=== PATIENT | female | born 2000 | race Caucasian/White ===

== ENCOUNTER 2019-09-20 05:55 | Inpatient (IN) | payer MEDICAID ==
[2019-09-20] MEDS ORDERED: CARBOPROST TROMETHAMINE 250 MCG/ML 1 ML AMP IM PRN (06:14)
[2019-09-20] MEDS ORDERED: TERBUTALINE 1 MG/ML VIAL SQ PRN (06:14)
[2019-09-20] MEDS ORDERED: OXYTOCIN 10 UNIT/ML 1 ML VIAL IM PRN (06:14)
[2019-09-20] MEDS ORDERED: AMPICILLIN 2,000 MG in SODIUM CHLORIDE 0.9% 100 ML IVPB STA (06:14)
[2019-09-20] MEDS ORDERED: METHYLERGONOVINE 0.2 MG/ML 1 ML AMP IM PRN (06:14)
[2019-09-20] MEDS ORDERED: LIDOCAINE 0.5% (PF) 5 MG/ML (50 ML SDV) SQ PRN (06:14)
[2019-09-20] MEDS ORDERED: LACTATED RINGERS 1,000 ML IV SCH (06:15)
[2019-09-20] MEDS ORDERED: OXYTOCIN 30 UNITS/500 ML NS 30 UNIT in SALINE 1 500ML.BAG IV SCH (06:15)
[2019-09-20 06:24] LABS: Basophils % (A) 0 %; Eosinophils # (A) 0.1 k/uL (0-0.7); Eosinophils % (A) 1 %; HCT 38.8 % (34.0-46.0); HGB 13.3 gm/dL (11.4-16.0); Lymphocytes # (A) 2.5 k/uL (1.0-4.8); Lymphocytes % (A) 20 %; MCH 29.1 pg (25.0-35.0); MCHC 34.2 g/dL (31.0-37.0); MCV 85.2 fL (80.0-100.0); Monocytes # (A) 0.6 k/uL (0-1.0); Monocytes % (A) 4 %; Neutrophils # (A) 9.1 k/uL (1.3-7.7); Neutrophils % (A) 73 %; Platelet Count 239 k/uL (150-450); RBC 4.55 m/uL (3.80-5.40); RDW 13.2 % (11.5-15.5); WBC 12.4 k/uL (4.0-11.0)
[2019-09-20] MEDS ORDERED: BUTORPHANOL 1 MG/ML 1 ML VIAL IV PRN (08:33)
--- NOTE | 2019-09-20 08:38 | P.HPOB ---
History of Present Illness H&P Date: 09/20/19 Chief Complaint: IUP at 39 and 1/sevenths weeks This is a 18-year-old 1 para 0 at 39 and one sevenths weeks with an estimated due date of 09/25. Patient has been receiving routine care with myself which has been essentially on The kidney. Patient has a prior history of a positive RPR titers have been consistent. She [facility]. Patient this a.m. notes good movement she denies contractions, loss of fluid or vaginal bleeding. On bloodwork patient has a blood type of A+, rubella status immune, RPR as stated above was positive titers being consistent. Hepatitis B surface antigen was negative HIV negative, group beta strep positive on 09/05. Review of Systems Constitutional: Denies chills, Denies fatigue, Denies fever Ears, nose, mouth and throat: Denies headache Cardiovascular: Reports leg edema Gastrointestinal: Denies diarrhea, Denies nausea, Denies vomiting Genitourinary: Reports Past Medical History Past Medical History: No Reported History History of Any Multi-Drug Resistant Organisms: None Reported Past Surgical History: No Surgical Hx Reported Past Anesthesia/Blood Transfusion Reactions: No Reported Reaction Smoking Status: Never smoker - Past Family History Father Family Medical History: Coronary Artery Disease (CAD) Medications and Allergies Home Medications Medication Instructions Recorded Confirmed Type Pnv No.95/Ferrous Fum/Folic AC 1 each PO DAILY 09/20/19 09/20/19 History [ Multivitamin Tablet] Allergies Allergy/AdvReac Type Severity Reaction Status Date / Time red dye AdvReac Vomiting Verified 09/20/19 06:13 Exam Osteopathic Statement: *. No significant issues noted on an osteopathic structural exam other than those noted in the History and Physical/Consult. 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 On cervical exam she is 3/80/-2 anatomy is performed and clear fluid was obtained. Results Result Diagrams: 09/20/19 06:15 Abnormal Lab Results - Last 24 Hours (Table) 09/20/19 Range/Units 06:15 WBC 12.4 H (4.0-11.0) k/uL Neutrophils # 9.1 H (1.3-7.7) k/uL Assessment and Plan (1) Term Current Visit: Yes Status: Acute Code(s): Z34.90 - ENCNTR FOR SUPRVSN OF NORMAL , UNSP, UNSP TRIMESTER SNOMED Code(s): 72156048 (2) Positive GBS test Current Visit: Yes Status: Acute Code(s): B95.1 - STREPTOCOCCUS, GROUP B, CAUSING DISEASES CLASSD ELSWHR SNOMED Code(s): 946349884 Plan: 18-year-old 1 para 0 at 39 and one sevenths weeks admitted to labor and delivery for elective induction of labor, Pitocin is started per hospital protocol. Options for analgesia are discussed with patient including Stadol or epidural. Patient will consider. Anesthesia will be notified if she desires epidural placement. Anticipate spontaneous vaginal delivery
[2019-09-20] MEDS ORDERED: PRENATAL VIT-IRON-FOLIC ACID 1 EACH CAP PO SCH (09:00)
[2019-09-20] MEDS ORDERED: AMPICILLIN 1,000 MG in SODIUM CHLORIDE 0.9% 50 ML IVPB SCH (10:15)
[2019-09-20] MEDS ORDERED: ROPIVACAINE 100 MG, fentaNYL (PF) 200 MCG in SODIUM CHLORIDE 0.9% 76 ML EPIDURAL ONE (10:53)
[2019-09-20] MEDS ORDERED: diphenhydrAMINE 50 MG CAP PO PRN (14:48)
[2019-09-20] MEDS ORDERED: HYDROCORTISONE 2.5% RECTAL CREAM 30 GM TUBE RECTAL PRN (14:48)
[2019-09-20] MEDS ORDERED: HYDROcodone/APAP 5-325MG 1 EACH TAB PO PRN (14:48)
[2019-09-20] MEDS ORDERED: SIMETHICONE 80 MG CHEWABLE PO PRN (14:48)
[2019-09-20] MEDS ORDERED: IBUPROFEN 600 MG TAB PO PRN (14:48)
[2019-09-20] MEDS ORDERED: diphenhydrAMINE 50 MG/ML 1 ML VIAL IVP PRN ×2 (14:48)
[2019-09-20] MEDS ORDERED: LANOLIN CREAM 5 GM TUBE TOPICAL PRN (14:48)
[2019-09-20] MEDS ORDERED: ACETAMINOPHEN TAB 325 MG TAB PO PRN (14:48)
[2019-09-20] MEDS ORDERED: BENZOCAINE/MENTHOL SPRAY 1 GM/SPRAY AEROSOL TOPICAL PRN (14:48)
[2019-09-20] MEDS ORDERED: ZOLPIDEM 5 MG TAB PO PRN (14:48)
[2019-09-20] MEDS ORDERED: diphenhydrAMINE 25 MG CAP PO PRN (14:48)
[2019-09-20] MEDS ORDERED: WITCH HAZEL 1 EACH MED..PAD TOPICAL PRN (14:48)
--- NOTE | 2019-09-20 14:53 | P.PROBDLV ---
Vaginal Delivery Note - . Vaginal Delivery Note: This is a pleasant 18-year-old 1 para 0 at 39 and one sevenths weeks with an estimated due date of 09/25. Patient presented to labor and delivery this morning for elective induction of labor. Patient was noted to be 3 cm dilated on initial exam. Patient was started on Pitocin induction of labor per hospital protocol. Patient underwent amniotomy clear fluid was obtained. Patient became uncomfortable and requested epidural placement, patient was noted to be 4 cm at that time. Anesthesia was notified and epidural was placed without difficulty. Patient progressed to complete began pushing and had a normal spontaneous vaginal delivery of a viable male infant at 1416. Prior to delivery of a midline episiotomy was preformed secondary to anterior tearing. After a two-minute delayed the umbilical cord was doubly clamped and cut and the infant was handed to the maternal abdomen. The placenta was then delivered spontaneously intact with a three-vessel cord being noted. Inspection the patient's vaginal vault the midline episiotomy was noted along with hymenal tears. The episiotomy was repaired in the usual fashion with 3-0 Rapide. The hymenal tears were repaired with a [id number]-[id number] suture of 3-0 Rapide without difficulty. Hemostasis was appreciated. Estimated blood loss 500 mL Rectal exam was performed at the end of the repair and rectal mucosa was normal in nature, no defects were appreciated. All counts were noted be correct 2 Patient and infant tolerated delivery well
[2019-09-20] MEDS ORDERED: OXYTOCIN 20 UNITS/1000 ML NS 1,000 ML IV SCH (15:00)
[2019-09-20] MEDS: SENNOSIDES-DOCUSATE SODIUM 1 EACH TAB PO SCH (20:07)
[2019-09-21 02:05] VITALS: RESP 18
[2019-09-21 06:13] LABS: Basophils % (A) 0 %; Eosinophils # (A) 0.1 k/uL (0-0.7); Eosinophils % (A) 0 %; HCT 26.1 % (34.0-46.0); Lymphocytes # (A) 2.3 k/uL (1.0-4.8); Lymphocytes % (A) 16 %; MCH 29.2 pg (25.0-35.0); MCHC 33.9 g/dL (31.0-37.0); MCV 86.3 fL (80.0-100.0); Mean Platelet Volume 7.9; Monocytes # (A) 0.8 k/uL (0-1.0); Monocytes % (A) 5 %; Neutrophils # (A) 11.3 k/uL (1.3-7.7); Neutrophils % (A) 77 %; Platelet Count 180 k/uL (150-450); RBC 3.02 m/uL (3.80-5.40); RDW 13.3 % (11.5-15.5); WBC 14.6 k/uL (4.0-11.0)
[2019-09-21 06:15] LABS: HGB 8.8 gm/dL (11.4-16.0)
[2019-09-21] MEDS: SENNOSIDES-DOCUSATE SODIUM 1 EACH TAB PO SCH (07:52)
[2019-09-21 08:39] VITALS: BP 100/66; PULSE 99; TEMP 98.4
--- NOTE | 2019-09-21 10:29 | P.DS ---
Providers Date of admission: 09/20/19 05:55 Expected date of discharge: 09/21/19 Attending physician: Hilda Jose Primary care physician: Stated None - Discharge Diagnosis(es) (1) Term Current Visit: Yes Status: Acute (2) Positive GBS test Current Visit: Yes Status: Acute (3) Positive RPR test Current Visit: Yes Status: Acute (4) Acute blood loss anemia Current Visit: Yes Status: Acute (5) hemorrhage Controlled with 1 dose of Methergine after delivery, patient had a 8 lbs. 13 oz. quickly, this precipitated the hemorrhage. It was recognized early treated with Methergine and controlled. Current Visit: Yes Status: Acute Hospital Course: This is a pleasant 18-year-old 1 para 0 at 39 and one sevenths weeks that presented to labor and delivery for elective induction of labor. Patient had been receiving routine care with myself which has been essentially uncomplicated, patient has a known history of a positive RPR, and was treated at the health department with penicillin 3. Patient is currently negative on serology. Patient was admitted to labor and delivery and found to be 3 cm. Once regular contractions were noted from Pitocin induction of labor per hospital protocol amniotomy was performed. Clear amniotic fluid was noted on amniotomy. Patient soon became uncomfortable and requested epidural placement. Epidural was placed without difficulty by the anesthesia department. Patient progressed quickly to complete began pushing and had a normal spontaneous vaginal delivery of a viable male at 1416, prior to delivery a midline episiotomy was preformed secondary to anterior tearing. Infant's weight 8 lbs. 13 oz. Episiotomy was repaired in the usual fashion with 3-0 Rapide. Patient did sustain bilateral hymenal tears in addition which was repaired with [id number] sutures of 3-0 Rapide. Patient did sustain a hemorrhage with delivery of her 8-13 pound . Patient was given Methergine after delivery. Hemoglobin today noted to be low at 8.8, consistent with acute blood loss anemia. Patient's course has been uneventful. Patient is ambulating and voiding without difficulty on this day #1. She states her pain is well-controlled, she is tolerating a regular diet without nausea or vomiting. She does wish discharge home at 24 hours. Infant was evaluated by pediatrics and plan is to treat infant with penicillin, his serology was negative. Patient Condition at Discharge: Good Plan - Discharge Summary New Discharge Prescriptions: No Action Pnv No.95/Ferrous Fum/Folic AC [ Multivitamin Tablet] 1 each PO DAILY Discharge Medication List Pnv No.95/Ferrous Fum/Folic AC [ Multivitamin Tablet] 1 each PO DAILY 09/20/19 [History] Follow up Appointment(s)/Referral(s): Hilda Jose DO [Doctor of Osteopathic Medicine] - 4 Weeks Patient Instructions/Handouts: Vaginal Delivery (DC), Vaginal Delivery (GEN) Discharge Disposition: HOME SELF-CARE
[2019-09-21] MEDS ORDERED: FERROUS SULFATE 325 MG TAB PO SCH (11:15)
== END 2019-09-21 16:00 | disposition home or self-care (01) | DRG 806 ==
LOC: 4FBP 05:55
PROVIDERS: ADMIT Obstetrics & Gynecology Obstetrics; ATTEND Obstetrics & Gynecology Obstetrics
PROC: 3E033VJ Introduction of Other Hormone into Peripheral Vein, Percutaneous Approach (ICD-10-PCS; principal; 2019-09-20)
PROC: 10E0XZZ Delivery of Products of Conception, External Approach (ICD-10-PCS; principal; 2019-09-20)
PROC: 3E0R3BZ Introduction of Anesthetic Agent into Spinal Canal, Percutaneous Approach (ICD-10-PCS; principal; 2019-09-20)
PROC: 10907ZC Drainage of Amniotic Fluid, Therapeutic from Products of Conception, Via Natural or Artificial Opening (ICD-10-PCS; principal; 2019-09-20)
PROC: 00HU33Z Insertion of Infusion Device into Spinal Canal, Percutaneous Approach (ICD-10-PCS; principal; 2019-09-20)
PROC: 0HQ9XZZ Repair Perineum Skin, External Approach (ICD-10-PCS; principal; 2019-09-20)
PROC: 0W8NXZZ Division of Female Perineum, External Approach (ICD-10-PCS; principal; 2019-09-20)
DX: O99.824 Streptococcus B carrier state complicating childbirth (principal); D62 Acute posthemorrhagic anemia; Z37.0 Single live birth; O72.1 Other immediate postpartum hemorrhage; O75.89 Other specified complications of labor and delivery; O70.0 First degree perineal laceration during delivery; O99.02 Anemia complicating childbirth; R78.89 Finding of other specified substances, not normally found in blood; Z3A.39 39 weeks gestation of pregnancy; Z91.048 Other nonmedicinal substance allergy status; Z82.49 Family history of ischemic heart disease and other diseases of the circulatory system
CPT/HCPCS: 85025; 86780; 86850; 86870; 86880; 86900; 86901; 88307

== ENCOUNTER 2020-06-25 11:54 | Emergency (ER) | payer MEDICAID, OTHER ==
[2020-06-25 12:32] LABS: Appearance,Urine Clear (Clear); Bilirubin,Urine Negative (Negative); Blood,Urine Small (Negative); Color,Urine Yellow; Glucose,Urine (UA) Negative (Negative); Ketones,Urine Negative (Negative); Leukocyte Esterase,Urine Negative (Negative); Mucus,Urine Rare /hpf; Nitrite,Urine Negative (Negative); Protein,Urine Negative (Negative); RBC,Urine 3 /hpf (0-5); Specific Gravity,Urine 1.015 (1.001-1.035); Squamous Epithelial Cell,Urine <1 /hpf (0-4); Urobilinogen,Urine <2.0 mg/dL (<2.0); WBC,Urine 1 /hpf (0-5)
[2020-06-25] MEDS ORDERED: SODIUM CHLORIDE 0.9% 1,000 ML IV STA (12:48)
--- NOTE | 2020-06-25 12:55 | ED ---
Abdominal Pain HPI - General Chief Complaint: Abdominal Pain Stated Complaint: back & abd pain Time Seen by Provider: 06/25/20 12:39 Source: patient, family, RN notes reviewed Mode of arrival: ambulatory Limitations: no limitations - History of Present Illness Initial Comments: 19-year-old white female patient presents to the emergency room with diffuse abdominal pain, states mostly epigastric in nature, sometimes radiates to her back for one week. Tried Tums at home with no relief. Patient denies any dysuria, vaginal bleeding, fevers, nausea vomiting or diarrhea. Patient states is a possibility of being . Last menstrual period was 06/03. Patient denies any medical or surgical history her daily medications. MD Complaint: abdominal pain -: week(s) (1) Location: diffuse (States on the left side into her back for one week but mostly diffuse worse after eating), LUQ Radiation: back Severity scale (1-10): 8 Quality: cramping Consistency: intermittent Improves With: nothing Worsens With: eating Associated Symptoms: diarrhea Treatments Prior to Arrival: antacids (tums) - Related Data LMP Date: 06/03/20 Patient : Yes (positive here today) Previous Rx's Medication Instructions Recorded Famotidine [Pepcid] 20 mg PO BID #28 tablet 06/25/20 Lgl-Qgpn-Qdbhe Acid 1 cap PO DAILY 60 Days #60 cap 06/25/20 [-U Capsule (formulary)] Allergies Allergy/AdvReac Type Severity Reaction Status Date / Time red dye AdvReac Vomiting Verified 06/25/20 14:18 Review of Systems ROS Statement: Those systems with pertinent positive or pertinent negative responses have been documented in the HPI. ROS Other: All systems not noted in ROS Statement are negative. Past Medical History Past Medical History: No Reported History History of Any Multi-Drug Resistant Organisms: None Reported Past Surgical History: No Surgical Hx Reported Past Anesthesia/Blood Transfusion Reactions: No Reported Reaction Past Psychological History: No Psychological Hx Reported Smoking Status: Former smoker Past Alcohol Use History: None Reported Past Drug Use History: None Reported - Past Family History Father Family Medical History: Coronary Artery Disease (CAD) General Exam Limitations: no limitations General appearance: alert, in no apparent distress Head exam: Present: atraumatic, normocephalic, normal inspection Eye exam: Present: normal appearance, PERRL, EOMI. Absent: scleral icterus, conjunctival injection, periorbital swelling ENT exam: Present: normal exam, mucous membranes moist Neck exam: Present: normal inspection, full ROM. Absent: tenderness, meningismus, lymphadenopathy Respiratory exam: Present: normal lung sounds bilaterally. Absent: respiratory distress, wheezes, rales, rhonchi, stridor, decreased breath sounds Cardiovascular Exam: Present: regular rate, normal rhythm, normal heart sounds. Absent: systolic murmur, diastolic murmur, rubs, gallop, clicks, JVD GI/Abdominal exam: Present: soft, normal bowel sounds. Absent: distended, tenderness, guarding, rebound, rigid Back exam: Present: normal inspection, full ROM. Absent: CVA tenderness (R), CVA tenderness (L) Neurological exam: Present: alert, oriented X3, CN II-XII intact Psychiatric exam: Present: normal affect, normal mood Skin exam: Present: warm, dry, intact, normal color. Absent: rash Course Vital Signs 06/25/20 06/25/20 12:13 15:18 Temperature 98.6 F 98.7 F Pulse Rate 87 80 Respiratory 20 18 Rate Blood Pressure 150/97 127/82 O2 Sat by Pulse 99 100 Oximetry Medical Decision Making - Medical Decision Making Case discussed with Dr. Hogan, ultrasound shows no gestational sac seen, early 4 weeks by date, no free fluid. Labs are within normal limits, no white count and no elevation in LFTs. Serum hCG 797, patient did get relief with Pepcid. We'll send patient home with prescription of Pepcid 20 mg daily a nd follow up with [facility] - Lab Data Result diagrams: 06/25/20 13:02 06/25/20 13:02 Lab Results 06/25/20 06/25/20 06/25/20 Range/Units 12:23 12:24 13:02 WBC 8.0 (4.0-11.0) k/uL RBC 4.65 (3.80-5.40) m/uL Hgb 13.1 (11.4-16.0) gm/dL Hct 37.7 (34.0-46.0) % MCV 81.1 (80.0-100.0) fL MCH 28.2 (25.0-35.0) pg MCHC 34.8 (31.0-37.0) g/dL RDW 13.8 (11.5-15.5) % Plt Count 238 (150-450) k/uL MPV 7.1 Neutrophils % 77 % Lymphocytes % 17 % Monocytes % 5 % Eosinophils % 1 % Basophils % 0 % Neutrophils # 6.1 (1.3-7.7) k/uL Lymphocytes # 1.3 (1.0-4.8) k/uL Monocytes # 0.4 (0-1.0) k/uL Eosinophils # 0.1 (0-0.7) k/uL Basophils # 0.0 (0-0.2) k/uL Sodium (137-145) mmol/L Potassium (3.5-5.1) mmol/L Chloride (98-107) mmol/L Carbon Dioxide (22-30) mmol/L Anion Gap mmol/L BUN (7-17) mg/dL Creatinine (0.52-1.04) mg/dL Est GFR (CKD-EPI)AfAm (>60 ml/min/1.73 sqM) Est GFR (CKD-EPI)NonAf (>60 ml/min/1.73 sqM) Glucose (74-99) mg/dL Calcium (8.4-10.2) mg/dL Total Bilirubin (0.2-1.3) mg/dL AST (14-36) U/L ALT (4-34) U/L Alkaline Phosphatase (38-126) U/L Total Protein (6.3-8.2) g/dL Albumin (3.5-5.0) g/dL Amylase (30-110) U/L Lipase (23-300) U/L HCG, Quant mIU/mL Urine Color Yellow Urine Appearance Clear (Clear) Urine pH 7.0 (5.0-8.0) Ur Specific [place] 1.015 (1.001-1.035) Urine Protein Negative (Negative) Urine Glucose (UA) Negative (Negative) Urine Ketones Negative (Negative) Urine Blood Small H (Negative) Urine Nitrite Negative (Negative) Urine Bilirubin Negative (Negative) Urine Urobilinogen <2.0 (<2.0) mg/dL Ur Leukocyte Esterase Negative (Negative) Urine RBC 3 (0-5) /hpf Urine WBC 1 (0-5) /hpf Ur Squamous Epith Cells <1 (0-4) /hpf Urine Mucus Rare H (None) /hpf Urine HCG, Qual Detected (Not Detectd) 06/25/20 06/25/20 Range/Units 13:02 13:02 WBC (4.0-11.0) k/uL RBC (3.80-5.40) m/uL Hgb (11.4-16.0) gm/dL Hct (34.0-46.0) % MCV (80.0-100.0) fL MCH (25.0-35.0) pg MCHC (31.0-37.0) g/dL RDW (11.5-15.5) % Plt Count (150-450) k/uL MPV Neutrophils % % Lymphocytes % % Monocytes % % Eosinophils % % Basophils % % Neutrophils # (1.3-7.7) k/uL Lymphocytes # (1.0-4.8) k/uL Monocytes # (0-1.0) k/uL Eosinophils # (0-0.7) k/uL Basophils # (0-0.2) k/uL Sodium 137 (137-145) mmol/L Potassium 3.7 (3.5-5.1) mmol/L Chloride 105 (98-107) mmol/L Carbon Dioxide 24 (22-30) mmol/L Anion Gap 8 mmol/L BUN 9 (7-17) mg/dL Creatinine 0.59 (0.52-1.04) mg/dL Est GFR (CKD-EPI)AfAm >90 (>60 ml/min/1.73 sqM) Est GFR (CKD-EPI)NonAf >90 (>60 ml/min/1.73 sqM) Glucose 104 H (74-99) mg/dL Calcium 9.1 (8.4-10.2) mg/dL Total Bilirubin 0.6 (0.2-1.3) mg/dL AST 19 (14-36) U/L ALT 16 (4-34) U/L Alkaline Phosphatase 85 (38-126) U/L Total Protein 7.0 (6.3-8.2) g/dL Albumin 4.0 (3.5-5.0) g/dL Amylase 48 (30-110) U/L Lipase 124 (23-300) U/L HCG, Quant 797.2 mIU/mL Urine Color Urine Appearance (Clear) Urine pH (5.0-8.0) Ur Specific [place] (1.001-1.035) Urine Protein (Negative) Urine Glucose (UA) (Negative) Urine Ketones (Negative) Urine Blood (Negative) Urine Nitrite (Negative) Urine Bilirubin (Negative) Urine Urobilinogen (<2.0) mg/dL Ur Leukocyte Esterase (Negative) Urine RBC (0-5) /hpf Urine WBC (0-5) /hpf Ur Squamous Epith Cells (0-4) /hpf Urine Mucus (None) /hpf Urine HCG, Qual (Not Detectd) Disposition Clinical Impression: Epigastric abdominal pain, Disposition: HOME SELF-CARE Condition: Good Instructions (If sedation given, give patient instructions): Abdominal Pain in (ED) Additional Instructions: Follow up with [facility] this week. Take vitamins daily, take Pepcid as prescribed for epigastric pain. Return if vaginal bleeding or increased abdominal pain. Prescriptions: Famotidine [Pepcid] 20 mg PO BID #28 tablet Bfk-Zlvt-Owjye Acid [-U Capsule (formulary)] 1 cap PO DAILY 60 Days #60 cap Is patient prescribed a controlled substance at d/c from ED?: No Referrals: Jacky Galvez DO [Primary Care Provider] - 1-2 days Time of Disposition: 15:55
[2020-06-25 13:19] LABS: Basophils % (A) 0 %; Eosinophils # (A) 0.1 k/uL (0-0.7); Eosinophils % (A) 1 %; HCT 37.7 % (34.0-46.0); HGB 13.1 gm/dL (11.4-16.0); Lymphocytes # (A) 1.3 k/uL (1.0-4.8); Lymphocytes % (A) 17 %; MCH 28.2 pg (25.0-35.0); MCHC 34.8 g/dL (31.0-37.0); MCV 81.1 fL (80.0-100.0); Mean Platelet Volume 7.1; Monocytes # (A) 0.4 k/uL (0-1.0); Monocytes % (A) 5 %; Neutrophils # (A) 6.1 k/uL (1.3-7.7); Neutrophils % (A) 77 %; Platelet Count 238 k/uL (150-450); RBC 4.65 m/uL (3.80-5.40); RDW 13.8 % (11.5-15.5)
[2020-06-25 13:30] LABS: Chloride 105 mmol/L (98-107)
[2020-06-25 13:32] LABS: ALT 16 U/L (4-34); AST 19 U/L (14-36); African American GFR (CKD) >90 (>60 ml/min/1.73 sqM); Alkaline Phosphatase 85 U/L (38-126); Amylase 48 U/L (30-110); Anion Gap 8 mmol/L; Blood Urea Nitrogen 9 mg/dL (7-17); Calcium 9.1 mg/dL (8.4-10.2); Carbon Dioxide 24 mmol/L (22-30); Glucose 104 mg/dL (74-99); Lipase 124 U/L (23-300); Non-African American GFR(CKD) >90 (>60 ml/min/1.73 sqM); Potassium 3.7 mmol/L (3.5-5.1); Sodium 137 mmol/L (137-145); Total Bilirubin 0.6 mg/dL (0.2-1.3)
--- NOTE | 2020-06-25 14:27 | US ---
EXAMINATION TYPE: Transabdominal DATE OF EXAM: 06/25/2020 2:14 PM COMPARISON: NONE CLINICAL HISTORY: r/o ectopic, abd pain. abd pain all over, no bleeding or cramping, EXAM PERFORMED: OBTA EXAM MEASUREMENTS: GESTATIONAL AGE / DATING Physician Established: Not yet established Dates by LMP: (4 weeks/4 days) EDC: 02/28/2021 Dates by First Scan: No previous this is first scan Dates by Current Scan for: Unable to date by today's study MATERNAL ANATOMY Uterus: 7.8 x 5.5 x 5.3cm, retroverted Right Ovary: 2.8 x 1.6 x 1.4cm Left Ovary: 3.8 x 2.6 x 2.2cm Post CDS / Adnexa: wnl Presence of free fluid: no Presence of corpus luteal cyst: left side 2.3 x 2.0 x 1.9cm Presence of subchorionic bleed: no GESTATION / SURVEY Too early to see gestation sac at this time Endometrium = 2.4-2.7cm, normal thickening seen in early OB Date of LMP: 05/24/2020 Beta HcG (if available): not available IMPRESSION: Mild thickening of the endometrium. No gestational sac identified.
[2020-06-25] MEDS ORDERED: FAMOTIDINE 20 MG/2 ML VIAL IV STA (14:53)
[2020-06-25 15:19] VITALS: BP 127/82; PULSE 80; RESP 18; TEMP 98.7
== END 2020-06-25 16:21 | disposition home or self-care (01) ==
LOC: EC 11:54
DX: O26.891 Other specified pregnancy related conditions, first trimester (principal); R10.13 Epigastric pain; Z87.891 Personal history of nicotine dependence; Z3A.01 Less than 8 weeks gestation of pregnancy
CPT/HCPCS: 36415; 76801; 80053; 81001; 81025; 82150; 83690; 84702; 85025; 96374; 99284

== ENCOUNTER → 2020-06-27 | Outpatient (CLI) | payer OTHER | END | disposition home or self-care (01) | LOC: LABWHC1 15:39 | PROVIDERS: ATTEND Obstetrics & Gynecology Obstetrics | DX: O20.0 Threatened abortion (principal); Z3A.00 Weeks of gestation of pregnancy not specified | CPT/HCPCS: 36415; 84702 ==

== ENCOUNTER → 2020-09-01 | Outpatient (CLI) | payer OTHER | END | disposition home or self-care (01) | LOC: LABWHC1 11:41 | PROVIDERS: ATTEND Obstetrics & Gynecology Obstetrics | DX: Z34.81 Encounter for supervision of other normal pregnancy, first trimester (principal) | CPT/HCPCS: 36415; 82950 ==

== ENCOUNTER 2020-10-28 21:10 | Emergency (ER) | payer OTHER ==
[2020-10-28 21:17] VITALS: TEMP 98.6
[2020-10-28 21:23] VITALS: RESP 16
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
[2020-10-28 23:21] VITALS: BP 151/93; PULSE 93
== END 2020-10-28 23:21 | disposition home or self-care (01) ==
LOC: EC 21:10
DX: Z04.1 Encounter for examination and observation following transport accident (principal); Z3A.21 21 weeks gestation of pregnancy; Z87.891 Personal history of nicotine dependence
CPT/HCPCS: 99283

== ENCOUNTER 2021-02-21 06:00 | Inpatient (IN) | payer OTHER ==
[2021-02-21] MEDS ORDERED: CARBOPROST TROMETHAMINE 250 MCG/ML 1 ML AMP IM PRN (06:26)
[2021-02-21] MEDS ORDERED: TERBUTALINE 1 MG/ML VIAL SQ PRN (06:26)
[2021-02-21] MEDS ORDERED: LIDOCAINE 0.5% (PF) 5 MG/ML (50 ML SDV) SQ PRN (06:26)
[2021-02-21] MEDS ORDERED: OXYTOCIN 10 UNIT/ML 1 ML VIAL IM PRN (06:26)
[2021-02-21] MEDS ORDERED: METHYLERGONOVINE 0.2 MG/ML 1 ML AMP IM PRN (06:26)
[2021-02-21] MEDS ORDERED: OXYTOCIN 30 UNITS/500 ML NS 30 UNIT in SALINE 1 500ML.BAG IV SCH ×2 (06:30→14:00)
[2021-02-21] MEDS: LACTATED RINGERS 1,000 ML IV SCH ×2 (06:43→16:05)
[2021-02-21 06:57] LABS: Basophils % (A) 0 %; Eosinophils % (A) 0 %; HCT 33.1 % (34.0-46.0); Lymphocytes # (A) 2.3 k/uL (1.0-4.8); Lymphocytes % (A) 19 %; MCHC 33.4 g/dL (31.0-37.0); Mean Platelet Volume 7.4; Monocytes # (A) 0.6 k/uL (0-1.0); Monocytes % (A) 5 %; Neutrophils # (A) 8.9 k/uL (1.3-7.7); Neutrophils % (A) 74 %; Platelet Count 217 k/uL (150-450); Poikilocytosis Slight; RBC 4.24 m/uL (3.80-5.40); RDW 13.9 % (11.5-15.5); WBC 12.1 k/uL (3.8-10.6)
[2021-02-21] MEDS ORDERED: ONDANSETRON 4 MG/2 ML VIAL IVP PRN (09:05)
[2021-02-21] MEDS ORDERED: ROPIVACAINE 5MG/ML 20ML VIAL ONE (12:31)
[2021-02-21] MEDS ORDERED: fentaNYL (PF) 50 MCG/ML 5 ML AMP ONE (12:31)
[2021-02-21] MEDS ORDERED: SODIUM CHLORIDE 0.9% 100 ML BAG ONE (12:31)
[2021-02-21] MEDS ORDERED: ROPIVACAINE 100 MG, fentaNYL (PF). 200 MCG in SODIUM CHLORIDE 0.9% 76 ML EPIDURAL ONE (13:02)
[2021-02-21] MEDS ORDERED: HYDROCORTISONE 2.5% RECTAL CREAM 30 GM TUBE RECTAL PRN (13:48)
[2021-02-21] MEDS ORDERED: SIMETHICONE 80 MG CHEWABLE PO PRN (13:48)
[2021-02-21] MEDS ORDERED: LANOLIN CREAM 5 GM TUBE TOPICAL PRN (13:48)
[2021-02-21] MEDS ORDERED: diphenhydrAMINE 50 MG CAP PO PRN (13:48)
[2021-02-21] MEDS ORDERED: diphenhydrAMINE 25 MG CAP PO PRN (13:48)
[2021-02-21] MEDS ORDERED: BENZOCAINE/MENTHOL SPRAY 1 GM/SPRAY AEROSOL TOPICAL PRN (13:48)
[2021-02-21] MEDS ORDERED: ZOLPIDEM 5 MG TAB PO PRN (13:48)
[2021-02-21] MEDS ORDERED: HYDROcodone/APAP 5-325MG 1 EACH TAB PO PRN (13:48)
[2021-02-21] MEDS ORDERED: diphenhydrAMINE 50 MG/ML 1 ML VIAL IVP PRN ×2 (13:48)
[2021-02-21] MEDS ORDERED: ACETAMINOPHEN TAB 325 MG TAB PO PRN (13:48)
[2021-02-21] MEDS ORDERED: miSOPROStoL 200 MCG TAB RECTAL STA (13:54)
--- NOTE | 2021-02-21 13:54 | P.HPOB ---
History of Present Illness H&P Date: 02/21/21 Chief Complaint: IUP @ 39 0/7 weeks this is a 20-year-old at 39-0/7 weeks that presents to labor and delivery for elective induction of labor. Patient has been receiving routine care which has been essentially uncomplicated. Patient did note a positive RPR with a negative antibody definitive screening. Patient was followed in her last with non-elevating titers. Patient does note good movement, she denies contractions vaginal bleeding or loss of fluid. on bloodwork this patient has a blood type of A+, rubella status immune, B surface antigen negative, HIV negative, RPR is noted to be reactive and on confirmatory test was nonreactive. Group beta strep cultures were noted to be negative. Review of Systems Constitutional: Denies chills, Denies fatigue, Denies fever Ears, nose, mouth and throat: Denies headache Respiratory: Denies dyspnea Gastrointestinal: Reports nausea, Reports vomiting, Denies constipation, Denies diarrhea Genitourinary: Reports Past Medical History Past Medical History: No Reported History History of Any Multi-Drug Resistant Organisms: None Reported Past Surgical History: No Surgical Hx Reported Past Anesthesia/Blood Transfusion Reactions: No Reported Reaction Past Psychological History: No Psychological Hx Reported Smoking Status: Never smoker Past Alcohol Use History: None Reported Past Drug Use History: None Reported - Past Family History Father Family Medical History: Coronary Artery Disease (CAD) Medications and Allergies Home Medications Medication Instructions Recorded Confirmed Type No Known Home Medications 02/21/21 02/21/21 History Allergies Allergy/AdvReac Type Severity Reaction Status Date / Time red dye AdvReac Vomiting Verified 06/25/20 14:18 Exam Osteopathic Statement: *. No significant issues noted on an osteopathic structural exam other than those noted in the History and Physical/Consult. Vital Signs Temp Pulse Resp BP Pulse Ox 02/21/21 06:25 97.2 F L 95 16 148/86 100 Intake and Output 02/20/21 02/21/21 02/21/21 22:59 06:59 14:59 Intake Total 50.183 Balance 50.183 Intake: Intake, IV Titration 50.183 Amount Oxytocin 30 Units/500 ml 50.183 Ns 30 unit In Saline 1 500ml.bag @ Per Protocol IV .Q0M [facility] Rx#:[id number] Other: Weight 107.048 kg Targeted physical exam is performed in this date and shift mgr a well-nourished well-developed female in no acute distress, breathing is noted to be nonlabored, heart has regular rhythm, abdomen is gravid and appropriate for gestational age, on cervical exam she is 4/70/-2 station amniotomy is performed and clear fluid was obtained. Category 1 heart tones are appreciated, and she is toribio irregularly. Results Result Diagrams: 02/21/21 06:20 Abnormal Lab Results - Last 24 Hours (Table) 02/21/21 Range/Units 06:20 WBC 12.1 H (3.8-10.6) k/uL Hgb 11.0 L (11.4-16.0) gm/dL Hct 33.1 L (34.0-46.0) % MCV 78.0 L (80.0-100.0) fL Neutrophils # 8.9 H (1.3-7.7) k/uL Assessment and Plan (1) Positive RPR test Current Visit: No Status: Acute Code(s): A53.0 - LATENT SYPHILIS, UNSPECIFIED EARLY OR LATE SNOMED Code(s): 676875094 (2) Term Current Visit: No Status: Acute Code(s): Z34.90 - ENCNTR FOR SUPRVSN OF NORMAL , UNSP, UNSP TRIMESTER SNOMED Code(s): 45334776 Plan: 20-year-old at 39 0/7 weeks presents to labor and delivery for induction of labor. Pitocin induction of labor is begun per hospital protocol. Options for analgesia are discussed including Stadol and epidural. She will decide. Anticipate spontaneous vaginal delivery later today.
--- NOTE | 2021-02-21 13:54 | P.PROBDLV ---
Vaginal Delivery Note - . Vaginal Delivery Note: this is a 20-year-old 2 para 1001 that presented to labor and delivery at 39-0/7 weeks. Patient's estimated due date of 02/28. Patient elected induction of labor. Patient was admitted to labor and delivery and Pitocin induction of labor was begun. Patient underwent amniotomy clear fluid was obtained. Patient progressed through labor eventually becoming uncomfortable and requesting epidural placement. Epidural was placed without difficulty by the anesthesia department. Patient soon progressed to complete was placed in a modified lithotomy position and with excellent maternal effort push the baby down to a . 's head was delivered followed by the anterior posterior shoulder. The infant's body was completely delivered and the infant was handed to the maternal abdomen. a spontaneous cry was noted at . After two-minute delayed the umbilical cord was doubly clamped and cut. The placenta was then delivered spontaneously intact with three-vessel cord being noted. Viable female delivered delivered at 1320, weight of 8 lbs. 2 oz., Apgars of 7 and 9 at one and 5 minutes respectively. a significant gush of vaginal bleeding was appreciated followed by multiple clots. The uterus was manually explored and multiple clots were noted, Methergine was given IM. Bleeding was noted to continue therefore Cytotec 1000 g per rectum was inserted. A red rubber catheter was then used to drain the bladder of scant clear yellow u rine. The uterus was noted to be firm and below the umbilicus, continued clots were noted, manual exploration of the uterus revealed the uterus to be firm with scant clots removed. On inspection the patient's vaginal vault a right labial laceration was appreciated after instillation of lidocaine and was repaired in the usual fashion with 3-0 Rapide. All counts were noted to be correct 2 at the delivery. Patient and tolerated delivery well and are resting comfortable he.
[2021-02-21] MEDS: IBUPROFEN 600 MG TAB PO SCH ×2 (14:19→19:38)
[2021-02-21 15:27] LABS: HCT 30.9 % (34.0-46.0); HGB 10.4 gm/dL (11.4-16.0); MCH 26.4 pg (25.0-35.0); MCHC 33.5 g/dL (31.0-37.0); MCV 78.8 fL (80.0-100.0); Mean Platelet Volume 7.4; Platelet Count 169 k/uL (150-450); RBC 3.92 m/uL (3.80-5.40); RDW 13.8 % (11.5-15.5); WBC 15.9 k/uL (3.8-10.6)
[2021-02-21] MEDS: SENNOSIDES-DOCUSATE SODIUM 1 EACH TAB PO SCH (19:37)
[2021-02-21 21:27] VITALS: RESP 16
[2021-02-22] MEDS: IBUPROFEN 600 MG TAB PO SCH ×2 (06:08→12:20)
[2021-02-22 06:25] LABS: Basophils % (A) 0 %; Eosinophils # (A) 0.1 k/uL (0-0.7); Eosinophils % (A) 1 %; HCT 24.9 % (34.0-46.0); Lymphocytes # (A) 2.3 k/uL (1.0-4.8); Lymphocytes % (A) 21 %; MCH 26.1 pg (25.0-35.0); MCHC 33.1 g/dL (31.0-37.0); MCV 78.9 fL (80.0-100.0); Mean Platelet Volume 7.6; Monocytes # (A) 0.6 k/uL (0-1.0); Monocytes % (A) 5 %; Neutrophils # (A) 7.7 k/uL (1.3-7.7); Neutrophils % (A) 71 %; Platelet Count 181 k/uL (150-450); RBC 3.16 m/uL (3.80-5.40); WBC 10.9 k/uL (3.8-10.6)
[2021-02-22 06:34] LABS: HGB 8.3 gm/dL (11.4-16.0)
[2021-02-22 07:35] VITALS: BP 113/77; PULSE 75; TEMP 98.5
[2021-02-22] MEDS: SENNOSIDES-DOCUSATE SODIUM 1 EACH TAB PO SCH (08:08)
--- NOTE | 2021-02-22 08:50 | P.DS ---
Providers Date of admission: 02/21/21 06:05 Expected date of discharge: 02/22/21 Attending physician: Hilda Jose Primary care physician: Stated None - Discharge Diagnosis(es) (1) Positive RPR test Current Visit: No Status: Acute (2) Term Current Visit: No Status: Acute (3) Status post normal vaginal delivery Current Visit: Yes Status: Acute (4) Obstetric vaginal laceration with first degree perineal laceration Current Visit: Yes Status: Acute (5) Acute blood loss anemia Current Visit: No Status: Acute (6) hemorrhage Current Visit: No Status: Acute Hospital Course: Is a 20-year-old G2 now P2 that presents to labor and delivery yesterday 02/21 for induction of labor at 39-0/7 weeks. Patient had been receiving routine care which been essentially uncomplicated. Patient doesn't have a history of syphilis for which she was treated RPR was positive with confirmatory test negative with this . Patient was admitted to labor and delivery and Pitocin induction of labor was begun per hospital protocol. Patient underwent amniotomy clear fluid was obtained. Patient did request epidural placement which was placed without difficulty by the anesthesia department. Patient quickly progressed to complete began pushing and had a normal spontaneous vaginal delivery of a viable female infant at 1320, weight of 8 lbs. 2 oz. Patient did sustain a hemorrhage for which she was given Methergine and Cytotec rectally. Patient had minimal bleeding through the evening. Patient is pumping and bottlefeeding. Patient's course has been uneventful. On this day #1 she is ambulating and voiding without difficulty. She is tolerating regular diet without nausea or vomiting. She states her pain is well-controlled. She would like discharge home at 24 hours. Patient Condition at Discharge: Good Plan - Discharge Summary New Discharge Prescriptions: No Action No Known Home Medications Discharge Medication List No Known Home Medications 02/21/21 [History] Follow up Appointment(s)/Referral(s): Hilda Jose DO [Doctor of Osteopathic Medicine] - 4 Weeks Patient Instructions/Handouts: Vaginal Delivery (DC), Vaginal Delivery (GEN) Discharge Disposition: HOME SELF-CARE
== END 2021-02-22 15:45 | disposition home or self-care (01) | DRG 806 ==
LOC: 4FBP 06:05
PROVIDERS: ADMIT Obstetrics & Gynecology Obstetrics; ATTEND Obstetrics & Gynecology Obstetrics
PROC: 10907ZC Drainage of Amniotic Fluid, Therapeutic from Products of Conception, Via Natural or Artificial Opening (ICD-10-PCS; principal; 2021-02-21)
PROC: 3E033VJ Introduction of Other Hormone into Peripheral Vein, Percutaneous Approach (ICD-10-PCS; principal; 2021-02-21)
PROC: 0HQ9XZZ Repair Perineum Skin, External Approach (ICD-10-PCS; principal; 2021-02-21)
PROC: 3E0P7VZ Introduction of Hormone into Female Reproductive, Via Natural or Artificial Opening (ICD-10-PCS; principal; 2021-02-21)
PROC: 10E0XZZ Delivery of Products of Conception, External Approach (ICD-10-PCS; principal; 2021-02-21)
DX: O98.12 Syphilis complicating childbirth (principal); D62 Acute posthemorrhagic anemia; Z37.0 Single live birth; O72.1 Other immediate postpartum hemorrhage; O70.0 First degree perineal laceration during delivery; O90.81 Anemia of the puerperium; A53.0 Latent syphilis, unspecified as early or late; Z3A.39 39 weeks gestation of pregnancy; Z91.048 Other nonmedicinal substance allergy status
CPT/HCPCS: 85025; 85027; 86850; 86900; 86901